=== PATIENT | female | born 2000 | race Asian ===

== ENCOUNTER 2018-05-21 14:54 | Emergency (ER) | payer OTHER ==
--- NOTE | 2018-05-21 15:12 | EDPHY ---
H & P Stated Complaint: AJ, tylenol OD Time Seen by Provider: 05/21/18 15:11 HPI/ROS: CHIEF COMPLAINT: "I took like 6 Tylenols in 4 hours" HISTORY OF PRESENT ILLNESS: The patient is a 17 y/o female arriving with her friend complaining of headache and reporting that she took 6 pills of 500mg Tylenol over a 4 hour period today. She has been stressed about an upcoming exam and woke with a headache along the back of her head. She took Tylenol just for this headache and denies any attempt at self harm. She has not taken anything else. She noticed some mild stomach pain while studying and after mentioning the amount of Tylenol she took a friend advised her to come to the ED. She notes she has not eaten since waking this morning. Her headache has not notably improved through the day. She denies weakness, paresthesias, speech difficulty, vision changes. REVIEW OF SYSTEMS: A ten system review of systems was performed and is negative with the exception of the items mentioned in the HPI. Past medical history: Denies Past surgical history: Denies Family history: Noncontributory Social history: Family in [facility]. No local PCP. [employer] student. General Appearance: Alert. Vital signs reviewed. Eyes: Pupils equal and round, no conjunctival injection, no discharge. Anicteric. ENT, Mouth: Mucous membranes are moist, no oropharyngeal erythema or edema. Neck: No lymphadenopathy, supple. Respiratory: Lungs are clear to auscultation; no wheezes, rales, or rhonchi. Cardiovascular: Regular rate and rhythm; no murmur, rub, or gallop. Gastrointestinal: Abdomen is soft and nontender, no masses or organomegaly, bowel sounds normal. Skin: Warm and dry, no rashes on exposed skin, normal color. Back: Nontender to palpation over the thoracolumbar spine. No CVAT. Extremities: No lower extremity edema, no calf tenderness or swelling. Neurological: Alert and oriented. Moving all four extremities easily and equally. Cranial nerves II through XII are examined and are intact (visual acuity not tested). Strength is 5 over 5 bilaterally with testing of all major motor groups. Sensation is intact to light touch over all 4 extremities. Deep tendon reflexes are 2+ in the biceps and knees bilaterally. Gait is normal. [id number] is performed accurately. Psychiatric: Normal affect. - Personal History Current Tetanus/Diphtheria Vaccine: Yes Current Tetanus Diphtheria and Acellular Pertussis (TDAP): Yes - Medical/Surgical History Hx Asthma: No Hx Chronic Respiratory Disease: No Hx Diabetes: No Hx Cardiac Disease: No Hx Renal Disease: No Hx Cirrhosis: No Hx Alcoholism: No Hx HIV/AIDS: No Hx Splenectomy or Spleen Trauma: No Other PMH: denies - Social History Smoking Status: Current every day smoker Constitutional: Initial Vital Signs Temperature (C) 36.7 C 05/21/18 14:58 Heart Rate 79 05/21/18 14:58 Respiratory Rate 16 05/21/18 14:58 Blood Pressure 92/67 L 05/21/18 14:58 O2 Sat (%) 99 05/21/18 14:58 O2 Delivery Mode Room Air Allergies/Adverse Reactions: No Known Allergies Allergy (Unverified 05/21/18 14:58) Home Medications: Medication Instructions Recorded Tylenol 05/21/18 Medical Decision Making ED Course/Re-evaluation: This is a healthy 17 y/o female who presents after an unintentional Tylenol overdose this morning in an attempt to treat a headache. She took six 500mg pills for a total of 3000mg between 09:00-14:00 today. The toxic dose for her ( weight 59 kg, 140 mg/kg X 59 = 8260 mg). I do not know for sure that her report is accurate, in terms of total number of pills taken. Will check tylenol levels. Her exam is completely normal. Plan for IV, labs, food, and observation. Acetaminophen level is 32, slightly high, at 15:30, approximately 1.5 hours after ingestion. Four hour acetaminophen level is 15, not a toxic level. She is not suicidal, this was not an intentional overdose. CBC shows mild anemia, WBC of 3.7. Chemistries, including liver panel, WNL. test negative. Salicylates neg. I do not suspect alcohol intoxication or other ingestion. She was given instruction on proper dosing of tylenol and ibuprofen. She received ibuprofen and ate lunch in ED with resolution of her headache. - Data Points Laboratory Results: Laboratory Results 05/21/18 15:30 05/21/18 15:30 Departure - Departure Disposition: Home, Routine, Self-Care Clinical Impression: Headache Qualifiers: Headache type: tension-type Headache chronicity pattern: acute headache Intractability: not intractable Qualified Code(s): G44.209 - Tension-type headache, unspecified, not intractable Condition: Good Instructions: Tension Headache (ED) Additional Instructions: Do not take any tylenol for the next 24 hours. When you take Tylenol again you can take a dose every 4 hr, but do not take more than 3000 mg within a 24 hr time period. It is okay to take ibuprofen, 400 mg, every 6 hours for pain. Take this with some food. I am referring you to a primary care doctor, in case you need to see a doctor as an outpatient. Referrals: NONE *PRIMARY CARE P,. [Primary Care Provider] - As per Instructions Rosa Buenrostro [place] [place] - As per Instructions Report Scribed for: Flower Collazo Report Scribed by: Mile Best Date of Report: 05/21/18 Time of Report: 15:20 Physician Review and Approval Statement: 05/21/18 15:11 Portions of this note were transcribed by the medical laboratory assistant. I, Dr. Flower Collazo, personally performed the history, physical exam, and medical decision- making; and confirmed the accuracy of the information in the transcribed note.
[2018-05-21 15:43] LABS: PLATELET COUNT 264 10^3/uL (150-400)
[2018-05-21 18:10] VITALS: BP 122/70
== END 2018-05-21 18:20 | disposition home or self-care (01) ==
DX: R51 Headache (principal)
CPT/HCPCS: G0480